=== PATIENT | female | born 1995 ===

== ENCOUNTER 2017-10-19 03:13 | Emergency (ER) | payer OTHER ==
[2017-10-19 03:33] VITALS: BP 120/68
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
[2017-10-19 05:58] VITALS: PULSE 72; RESP 20; TEMP 98; O2SAT 98
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
== END 2017-10-19 05:53 | disposition home or self-care (01) ==
LOC: C.ER 03:13 → SUPCPDRO 03:13 → C.ER 05:53
DX: S13.9XXA Sprain of joints and ligaments of unspecified parts of neck, initial encounter (principal); S09.90XA Unspecified injury of head, initial encounter; V49.9XXA Car occupant (driver) (passenger) injured in unspecified traffic accident, initial encounter